=== PATIENT | female | born 1980 | race Caucasian/White ===

== ENCOUNTER 2018-07-22 08:38 | Emergency (ER) | payer MEDICAID ==
[~2018-07-22] VITALS: Ht 170.2 cm; Wt 97.1 kg
[2018-07-22 08:44] VITALS: BP 161/98
--- NOTE | 2018-07-22 08:44 | NUR ---
PT BIB SELF C/O BACK PAIN FOR 5 DAYS MUCH WORSE TODAY. PT IS AAOX4 IRISH SPEAKING ONLY, NOT IN RESPIRATORY DISTRESS, HOOKED TO MONITOR, KEPT RESTED AND COMFORTABLE.
--- NOTE | 2018-07-22 08:50 | NUR ---
URINE SPECIMEN COLLECTED AND SENT TO LAB.
--- NOTE | 2018-07-22 08:53 | NUR ---
DR. JUAREZ AT BEDSIDE FOR EVAL.
--- NOTE | 2018-07-22 09:02 | NUR ---
Patient discharged to home in stable condition. Written and verbal after care instructions given. Patient verbalizes understanding of instruction.
== END 2018-07-22 09:05 | disposition home or self-care (01) ==
LOC: ER 08:43
DX: M54.5 Low back pain (principal); I10 Essential (primary) hypertension
CPT/HCPCS: Z7502